=== PATIENT | female | born 1975 ===

== ENCOUNTER 2021-02-03 10:59 | Emergency (ER) | payer OTHER ==
[~2021-02-03] VITALS: Ht 162.6 cm; Wt 81.6 kg
[~2021-02-03 10:59] MED LIST: KLONOPIN2 MG/TAB PO; PAXIL20 MG PO; PROSOM2 MG PO; TAGAMET400 MG PO; [UNRECOGNIZED DRUG - OTHER] PO
[2021-02-03] MEDS ORDERED: KETO10TA2 PO (13:35)
[2021-02-03] MEDS ORDERED: NORFLEX100MG PO (13:35)
== END 2021-02-03 14:57 | disposition home or self-care (01) ==
LOC: ER 10:59
DX: S30.0XXA Contusion of lower back and pelvis, initial encounter (principal); M53.3 Sacrococcygeal disorders, not elsewhere classified; W16.112A Fall into natural body of water striking water surface causing other injury, initial encounter; Y93.89 Activity, other specified; Y92.828 Other wilderness area as the place of occurrence of the external cause; Y99.8 Other external cause status